=== PATIENT | female | born 1990 | race Caucasian/White ===

== ENCOUNTER 2017-05-19 01:21 | Emergency (ER) | payer MEDICAID ==
[~2017-05-19] VITALS: Ht 157.5 cm; Wt 90.7 kg
[2017-05-19 01:35] VITALS: BP 120/79
[2017-05-19] MEDS ORDERED: NEXPLANON68 MG SQ (01:37)
--- NOTE | 2017-05-19 01:58 | Emergency Room Report ---
History of Present Illness General Chief Complaint: Pain Source: Patient Present Illness HPI Is a 26-year-old female with history anxiety depression. She also has history of IV heroin injection. Initially she did not report this. She presents with multiple complaints. She presents with chief complaint of possible lower extremity DVT bilaterally. She said her feet are swollen. Also felt nauseous. Reported an episode of syncope earlier today. No trauma however. Denies any abdominal pain. [place] nauseous but no vomiting. No diarrhea. No other complaint. She said that her control implants is overdue. It has been at least 3-5 months now. Allergies: Coded Allergies: No Known Allergies (Unverified , 05/19/17) Patient History Past Medical History: see triage record, old chart reviewed, psych hx Past Surgical History: other Pertinent Family History: none Social History: Reports: drug use Last Menstrual Period: 1.5 years ago Now: No Immunizations: other Reviewed Nursing Documentation: PMH: Agreed, PSxH: Agreed Nursing Documentation-PMH Past Medical History: No Stated History Review of Systems Eye: Denies: eye pain, blurred vision ENT: Denies: ear pain, nose congestion, throat swelling Respiratory: Denies: cough, shortness of breath Cardiovascular: Denies: chest pain, palpitations Gastrointestinal: Reports: nausea, Denies: abdominal pain, diarrhea, vomiting Musculoskeletal: Denies: back pain, joint pain Skin: Denies: rash Neurological: Denies: headache, numbness Endocrine: Denies: increased thirst, increased urine Hematologic/Lymphatic: Denies: easy bruising All Other Systems: negative except mentioned in HPI Physical Exam Vital Signs Date Time Temp Pulse Resp B/P (MAP) Pulse Ox O2 Delivery O2 Flow Rate FiO2 05/19/17 01:32 98.2 108 20 120/79 99 Room Air vitals tachycardia Sp02 EP Interpretation: reviewed, normal General Appearance: well appearing, no apparent distress, alert Head: normocephalic, atraumatic Eyes: bilateral eye PERRL, bilateral eye EOMI ENT: hearing grossly normal, normal pharynx Neck: full range of motion, supple, no meningismus Respiratory: chest non-tender, lungs clear, normal breath sounds Cardiovascular #1: regular rate, rhythm, no murmur Gastrointestinal: normal bowel sounds, non tender, no mass, no organomegaly, no bruit, non-distended Musculoskeletal: back normal, gait/station normal, normal range of motion, other - Patient with multiple ecchymosis on her upper extremities. There were also small puncture hole on her hands. I see small track lopez on the dorsum of her feet bilaterally. Repeat does show nonpitting mild edema. Dorsalis pedis pulses normal. Neurologic: alert, oriented x3 Psychiatric: anxious Skin: warm/dry Medical Decision Making Diagnostic Impression: Primary Impression: Pedal edema Additional Impressions: Anxiety about health Heroin abuse ER Course Patient was as with pedal edema. Probably secondary to drug use. I see no evidence of DVT. Chest tenderness. Is not . We'll discharge home. Patient much calmer now after reassurance. She felt better also. Lab Results Impression labs normal Last Vital Signs Date Time Temp Pulse Resp B/P (MAP) Pulse Ox O2 Delivery O2 Flow Rate FiO2 05/19/17 01:32 98.2 108 20 120/79 99 Room Air Status: improved Disposition: HOME, SELF-CARE Condition: Stable Scripts Ondansetron (Zofran) 4 Mg Tablet 4 MG ORAL Q6H Y for Nausea & Vomiting, #10 TAB 0 Refills Prov: GIGI SANCHES M.D. 05/19/17 Additional Instructions: Followup with your DrVahe in 3-5 days. Return if symptom worsen. Abstain from drugs and alcohol. GIGI SANCHES M.D. May 19, 2017 01:58
[2017-05-19 02:29] LABS: BASOPHILS % (AUTO) 0.9 % (0.0-2.0); EOSINOPHILS % (AUTO) 1.7 % (0.0-3.0); LYMPHOCYTES % (AUTO) 39.5 % (20.0-45.0); MEAN CORPUSCULAR HEMOGLOBIN 32.1 PG (27.0-31.0); MEAN CORPUSCULAR HGB CONC 35.7 G/DL (32.0-36.0); MEAN CORPUSCULAR VOLUME 90 FL (80-99); MEAN PLATELET VOLUME 5.9 FL (6.5-10.1); MONOCYTES % (AUTO) 5.6 % (1.0-10.0); NEUTROPHILS % (AUTO) 52.3 % (45.0-75.0); PLATELET COUNT 284 K/UL (150-450); RED BLOOD COUNT 4.74 M/UL (4.20-5.40); RED CELL DISTRIBUTION WIDTH 10.6 % (11.6-14.8); WHITE BLOOD COUNT 8.6 K/UL (4.8-10.8)
[2017-05-19 02:43] LABS: ANION GAP 15 (5-15); CALCIUM 10.1 mg/dL (8.6-10.2); CARBON DIOXIDE 23 mEQ/L (20-30); CHLORIDE 102 mEQ/L (98-107); CREATININE 0.6 mg/dL (0.5-0.9); GLOMERULAR FILTRATION RATE > 60 mL/min (>60); HEMOLYSIS 7; POTASSIUM 3.9 mEQ/L (3.4-4.9); SODIUM 140 mEQ/L (135-145)
[2017-05-19] MEDS ORDERED: ZOFRAN4 MG ORAL (03:31)
[2017-05-19 03:49] VITALS: BP 120/88
== END 2017-05-19 03:53 | disposition home or self-care (01) ==
LOC: EMR 01:38
DX: R60.0 Localized edema (principal); F41.9 Anxiety disorder, unspecified; F11.10 Opioid abuse, uncomplicated
CPT/HCPCS: 36415; 80048; 81025; 85025; 96374; 96375; 99284; J2405

== ENCOUNTER 2018-03-25 04:38 | Emergency (ER) | payer MEDICAID, OTHER ==
[~2018-03-25] VITALS: Ht 157.5 cm; Wt 83.9 kg
[~2018-03-25 04:38] MED LIST: NEXPLANON68 MG SQ; ZOFRAN4 MG ORAL
[2018-03-25 04:52] VITALS: BP 118/74
[2018-03-25] MEDS ORDERED: Methocarbamol 750mg tab ORAL ONE (05:15)
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
[2018-03-25] MEDS ORDERED: IBUPROFEN600 MG ORAL (05:25)
[2018-03-25] MEDS ORDERED: ROBAXIN-750750 MG PO (05:25)
[2018-03-25] MEDS ORDERED: ALPRAZolam 0.5mg tab ORAL ONE (05:30)
[2018-03-25 05:57] VITALS: BP 118/74
--- NOTE | 2018-03-25 06:04 | Diagnostic Imaging Report ---
EXAM: XR Chest, 1 View CLINICAL HISTORY: CP TECHNIQUE: Frontal view of the chest. COMPARISON: No relevant prior studies available. FINDINGS: Lungs: Unremarkable. No consolidation. Pleural space: Unremarkable. No pneumothorax. Heart: Unremarkable. No cardiomegaly. Mediastinum: Unremarkable. Bones/joints: Unremarkable. IMPRESSION: No acute findings.
--- NOTE | 2018-03-25 06:05 | Diagnostic Imaging Report ---
EXAM: XR Right Hip With Pelvis When Performed, 2 or 3 Views CLINICAL HISTORY: TRAUMA TECHNIQUE: Two or three views of the right hip, with pelvis when performed. COMPARISON: No relevant prior studies available. FINDINGS: Bones/joints: Unremarkable. No acute fracture. No dislocation. Soft tissues: Unremarkable. Other findings: The patient is obese. IMPRESSION: No acute fracture.
--- NOTE | 2018-03-30 16:32 | Cardiology Report ---
APPROVED REPORT EKG Measurement Heart [id number] OH 150P-18 [id number] Normal sinus rhythm Minimal voltage criteria for LVH, may be normal variant Borderline ECG
== END 2018-03-25 05:57 | disposition home or self-care (01) ==
LOC: EMR 05:04
DX: M25.551 Pain in right hip (principal); R07.9 Chest pain, unspecified; R06.02 Shortness of breath; F41.9 Anxiety disorder, unspecified; M54.5 Low back pain; V43.52XA Car driver injured in collision with other type car in traffic accident, initial encounter; Y93.9 Activity, unspecified; Y92.410 Unspecified street and highway as the place of occurrence of the external cause
CPT/HCPCS: 71045; 93005; 99284